=== PATIENT | female | born 1995 | race Caucasian/White ===

== ENCOUNTER 2020-10-11 06:45 | Inpatient (IN) | payer OTHER, BC ==
[~2020-10-11] VITALS: Ht 167.6 cm; Wt 83.6 kg
[2020-10-11] MEDS: LACTATED RINGERS 1,000 ML IV SCH ×2 (07:20→12:23)
[2020-10-11] MEDS ORDERED: NEWBORN KIT ONE (07:45)
[2020-10-11] MEDS ORDERED: MISOPROSTOL 200 MCG TABLET ONE (07:46)
[2020-10-11] MEDS ORDERED: LIDOCAINE 1%, 20ML ONE (07:46)
[2020-10-11 07:54] VITALS: BP 120/71
[2020-10-11 07:59] LABS: BASOPHILS % (AUTO) 1 % (0-1); EOSINOPHILS % (AUTO) 1 % (1-7); LYMPHOCYTES % (AUTO) 26 % (22-44); MEAN CORPUSCULAR HEMOGLOBIN 27.7 pg (27.0-34.8); MEAN CORPUSCULAR HGB CONC 33.7 g/dL (32.4-35.8); MEAN PLATELET VOLUME 9.8 fL (7.4-10.4); MONOCYTES % (AUTO) 8 % (2-9); NEUTROPHILS % (AUTO) 65 % (42-75); PLATELET COUNT 127 x10^3/uL (130-400); RED BLOOD COUNT 4.49 x10^6/uL (3.82-5.3); RED CELL DISTRIBUTION WIDTH 16.4 % (9.6-15.2)
[2020-10-11] MEDS ORDERED: FENTANYL PF 100 MCG/2ML IV PRN (08:00)
[2020-10-11] MEDS ORDERED: TERBUTALINE 1 MG/ML, 1ML IVPush PRN (08:00)
[2020-10-11] MEDS ORDERED: MISOPROSTOL 25 MCG TABLET VG PRN (08:00)
[2020-10-11] MEDS ORDERED: OXYTOCIN 30U/ 0.9% NaCL 500ML 500 ML IV PRN (08:00)
[2020-10-11] MEDS ORDERED: TERBUTALINE 1 MG/ML, 1ML SQ PRN (08:00)
[2020-10-11] MEDS ORDERED: FENTANYL PF 100 MCG/2ML IVPush PRN (08:00)
[2020-10-11] MEDS ORDERED: OXYTOCIN 30U/ 0.9% NaCL 500ML 500 ML IV ONE (08:00)
[2020-10-11] MEDS ORDERED: DIPH,PERTUSS(ACELL),TET VAC/PF NC IM-VACC ONE (08:56)
[2020-10-11] MEDS ORDERED: PREN1TAB60 PO (11:43)
[2020-10-11 12:05] VITALS: BP 110/66
[2020-10-11] MEDS: LACTATED RINGERS 1,000 ML IVBOLUS PRN ×2 (16:30→16:55)
[2020-10-11] MEDS ORDERED: BUPIVACAINE 0.25% ONE (17:22)
[2020-10-11] MEDS ORDERED: FENTANYL/BUPIV./NS/PF 250 ML EPIDCONT ONE (17:23)
[2020-10-11] MEDS ORDERED: EPHEDRINE 50 MG/ML, 1ML IVPush PRN (18:00)
[2020-10-11] MEDS ORDERED: LACTATED RINGERS 1,000 ML IV SCH (18:00)
[2020-10-11] MEDS ORDERED: FENTANYL/BUPIV./NS/PF 250 ML EPIDCONT SCH (18:00)
[2020-10-12] MEDS: LACTATED RINGERS 1,000 ML IV SCH ×4 (04:30→17:51)
[2020-10-12] MEDS ORDERED: ONDANSETRON 2MG/ML, 2ML ONE ×2 (05:35→16:28)
[2020-10-12] MEDS ORDERED: ONDANSETRON 2MG/ML, 2ML IVPush PRN ×2 (06:00→21:00)
[2020-10-12] MEDS ORDERED: LIDOCAINE/MPF 2%-EPI 1:200K, 20 ML ONE ×2 (08:57→16:15)
[2020-10-12 09:41] VITALS: BP 119/77
[2020-10-12] MEDS ORDERED: MISOPROSTOL 200 MCG TABLET ONE (14:53)
[2020-10-12] MEDS ORDERED: CLINDAMYCIN PMX 900MG/50ML 50 ML ONE (16:15)
[2020-10-12] MEDS ORDERED: DEXAMETHASONE 4 MG/ML, 1ML ONE (16:28)
[2020-10-12] MEDS ORDERED: KETOROLAC 30 MG/1 ML ONE (16:28)
[2020-10-12] MEDS ORDERED: OXYTOCIN 10 UNITS/ML, 1ML ONE (16:28)
[2020-10-12] MEDS ORDERED: KETAMINE 10 MG/ML, 20ML ONE (16:34)
[2020-10-12] MEDS ORDERED: FENTANYL PF 100 MCG/2ML ONE (16:37)
[2020-10-12] MEDS ORDERED: MIDAZOLAM 1 MG/ML, 2ML ONE (16:37)
[2020-10-12] MEDS ORDERED: morphine SULFATE/PF 0.5 MG/ML, 10ML ONE (16:38)
[2020-10-12] MEDS ORDERED: METHYLERGONOVINE 0.2 MG/ML IM PRN (17:30)
[2020-10-12] MEDS ORDERED: OXYcodone/APAP 5/325MG TABLET PO PRN (17:30)
[2020-10-12] MEDS ORDERED: CARBOPROST TROMETHAMINE 250 MCG/ML, 1ML IM PRN (17:30)
[2020-10-12] MEDS ORDERED: IBUPROFEN 600 MG TABLET PO PRN (17:30)
[2020-10-12] MEDS ORDERED: MORPHINE SULFATE 4 MG/ML, 1ML IVPush PRN ×2 (17:30→21:30)
[2020-10-12] MEDS ORDERED: ONDANSETRON 2MG/ML, 2ML IV PRN (17:30)
[2020-10-12] MEDS ORDERED: morphine SULFATE 10 MG/ML, 1ML IVPush PRN (17:30)
[2020-10-12] MEDS ORDERED: MISOPROSTOL 200 MCG TABLET PR PRN (17:30)
[2020-10-12] MEDS: OXYTOCIN 30U/ 0.9% NaCL 500ML 500 ML IV SCH (17:55)
[2020-10-12] MEDS ORDERED: OXYcodone 5 MG/5 ML ORAL.SOL UDC PO PRN (18:30)
[2020-10-12] MEDS ORDERED: OXYcodone 5 MG/5 ML ORAL.SOL UDC ONE (18:31)
[2020-10-12 20:05] VITALS: BP 132/90
[2020-10-12] MEDS ORDERED: DIPHENHYDRAMINE 50 MG/ML, 1ML IVPush PRN (21:30)
[2020-10-12] MEDS: KETOROLAC 30 MG/1 ML IVPush SCH (22:45)
[2020-10-13] VITALS: BP 117/76
[2020-10-13 01:23] LABS: MEAN CORPUSCULAR HEMOGLOBIN 27.4 pg (27.0-34.8); MEAN CORPUSCULAR HGB CONC 33.1 g/dL (32.4-35.8); MEAN PLATELET VOLUME 10.2 fL (7.4-10.4); PLATELET COUNT 114 x10^3/uL (130-400); RED BLOOD COUNT 4.37 x10^6/uL (3.82-5.3); RED CELL DISTRIBUTION WIDTH 16.8 % (9.6-15.2)
[2020-10-13] MEDS: LACTATED RINGERS 1,000 ML IV SCH ×6 (01:30→23:30)
[2020-10-13 02:21] LABS: <RBC MORPHOLOGY> NORMAL; BAND#(MANUAL) 1.45 x10^3/uL; BANDS%(MANUAL) 9 % (0-7); LYMPH#(MANUAL) 0.48 x10^3/uL (1-3.4); LYMPHS% (MANUAL) 3 % (22-44); MONOS#(MANUAL) 0.48 x10^3/uL (0.3-2.7); MONOS% (MANUAL) 3 % (2-9); SEG#(MANUAL) 13.69 x10^3/uL (1.8-6.8); SEGS% (MANUAL) 85 % (42-75)
[2020-10-13 02:23] LABS: <PLATELET ESTIMATE> DECREASED; <PLT MORPHOLOGY> NORMAL PLT MORPH
[2020-10-13] MEDS: OXYTOCIN 30U/ 0.9% NaCL 500ML 500 ML IV SCH ×3 (03:30→23:30)
[2020-10-13 04:05] VITALS: BP 129/87
[2020-10-13] MEDS: KETOROLAC 30 MG/1 ML IVPush SCH ×3 (04:52→17:39)
[2020-10-13 07:00] VITALS: BP 112/78
[2020-10-13] MEDS: DOCUSATE 100 MG CAPSULE PO PRN (11:36)
[2020-10-13] MEDS: PRENATAL VIT/IRON/FA 1 EACH TABLET PO SCH (11:36)
[2020-10-13 11:55] VITALS: BP 111/76
[2020-10-13 16:10] VITALS: BP 115/80
[2020-10-13] MEDS: SIMETHICONE 80 MG CHEW TAB PO PRN (17:39)
[2020-10-13 19:30] VITALS: BP 116/82
[2020-10-13] MEDS: OXYcodone/APAP 5/325MG TABLET PO PRN (21:26)
[2020-10-13] MEDS: IBUPROFEN 600 MG TABLET PO PRN (23:41)
[2020-10-14] MEDS: LACTATED RINGERS 1,000 ML IV SCH ×3 (01:30→09:30)
[2020-10-14] MEDS: IBUPROFEN 600 MG TABLET PO PRN ×2 (05:40→11:59)
[2020-10-14 07:26] VITALS: BP 123/82
[2020-10-14] MEDS: PRENATAL VIT/IRON/FA 1 EACH TABLET PO SCH (07:33)
[2020-10-14] MEDS: SIMETHICONE 80 MG CHEW TAB PO PRN (07:33)
[2020-10-14] MEDS: DOCUSATE 100 MG CAPSULE PO PRN (07:33)
[2020-10-14] MEDS: OXYcodone/APAP 5/325MG TABLET PO PRN ×2 (07:35→12:01)
[2020-10-14] MEDS: OXYTOCIN 30U/ 0.9% NaCL 500ML 500 ML IV SCH (09:30)
[2020-10-14] MEDS ORDERED: IBUP-1222 PO (13:17)
[2020-10-14] MEDS ORDERED: OXYC1TAB14 PO (13:17)
[2020-10-14] MEDS ORDERED: PREN1TAB60 PO (13:17)
[2020-10-14] MEDS ORDERED: SENN-52 PO (13:18)
== END 2020-10-14 13:54 | disposition home or self-care (01) | DRG 788 ==
LOC: LDIP 06:45 → 2NW 10-12 17:30 → LDIP 10-12 17:56 → 2NW 10-12 19:25
PROVIDERS: ADMIT Obstetrics & Gynecology; ATTEND Obstetrics & Gynecology
PROC: 10D00Z1 Extraction of Products of Conception, Low, Open Approach (ICD-10-PCS; principal; 2020-10-12)
PROC: 10907ZC Drainage of Amniotic Fluid, Therapeutic from Products of Conception, Via Natural or Artificial Opening (ICD-10-PCS; 2020-10-12)
PROC: 10H07YZ Insertion of Other Device into Products of Conception, Via Natural or Artificial Opening (ICD-10-PCS; 2020-10-12)
PROC: 3E0P7VZ Introduction of Hormone into Female Reproductive, Via Natural or Artificial Opening (ICD-10-PCS; 2020-10-12)
PROC: 3E0DXGC Introduction of Other Therapeutic Substance into Mouth and Pharynx, External Approach (ICD-10-PCS; 2020-10-12)
PROC: 3E033VJ Introduction of Other Hormone into Peripheral Vein, Percutaneous Approach (ICD-10-PCS; 2020-10-12)
DX: O62.1 Secondary uterine inertia (principal); O66.5 Attempted application of vacuum extractor and forceps; Z37.0 Single live birth; Z3A.38 38 weeks gestation of pregnancy; Z20.822 Contact with and (suspected) exposure to COVID-19; O13.4 Gestational [pregnancy-induced] hypertension without significant proteinuria, complicating childbirth
CPT/HCPCS: 36415; 85025; 86592; 86850; 86900; 87635; G0378; J1100; J1885; J2250; J2274; J2405; J3010; J2590; J7120